=== PATIENT | female | born 1975 | race American Indian/Alaskan Native ===

== ENCOUNTER 2018-08-11 19:03 | Emergency (ER) | payer OTHER ==
[2018-08-11 19:43] VITALS: BP 155/92
[2018-08-11] MEDS ORDERED: SOLU-Medrol IM ONE (20:31)
[2018-08-11] MEDS ORDERED: PEPCID PO ONE (20:32)
--- NOTE | 2018-08-11 21:53 | Emergency Department Report ---
HPI - General Chief Complaint: Allergic Reaction Time Seen by Provider: 08/11/18 21:00 - HPI HPI: Patient is a 43-year-old -[place] female with a history of hypertension and seizures and takes carbamazepine and lisinopril presents to the ED with matthew goff of acute onset left lower lip swelling 12 hours ago, and which has since resolved but states that she retains pressure in the left lower lip. Patient states that she has been taking Lisinopril "for a while now" and suspects that the swelling may have been from taking lisinopril. Patient states that she took Benadryl intermittently through the day after developing this lower lip swelling. The patient denies dizziness, swollen tongue, swollen throat, dysphagia, dysphonia, shortness of breath, chest tightness, wheezing, cough, nausea, vomiting, diarrhea, abdominal pain, fever or chills. ED Past Medical Hx - Past Medical History Hx Hypertension: Yes Hx Seizures: Yes - Surgical History Additional Surgical History: tubal ligation - Social History Smoking Status: Never Smoker Substance Use Type: None - Medications Home Medications: Home Medications Medication Instructions Recorded Confirmed Last Taken Type Ranitidine HCl [Zantac] 150 mg PO Q12H #20 tablet 08/11/18 Unknown Rx amLODIPine [Norvasc] 10 mg PO DAILY #30 tab 08/11/18 Unknown Rx methylPREDNISolone [Medrol] 4 mg PO DAILY #21 tab.ds.pk 08/11/18 Unknown Rx ED Review of Systems ROS: Stated complaint: ALLEGIC REACTION/LIP SWOLLEN Other details as noted in HPI Comment: All other systems reviewed and negative Constitutional: no symptoms reported, see HPI. denies: chills, diaphoresis, fever, malaise, weakness Eyes: as per HPI. denies: eye pain, eye discharge, vision change ENT: as per HPI, other (Mild lower lip swelling). denies: ear pain, throat pain, dental pain, hearing loss, epistaxis, congestion Respiratory: no symptoms reported, see HPI. denies: cough, orthopnea, shortness of breath, SOB with exertion, SOB at rest Cardiovascular: as per HPI. denies: chest pain, palpitations, dyspnea on exertion, edema, syncope, other Endocrine: no symptoms reported, see HPI. denies: excessive sweating, flushing, intolerance to cold, intolerance to heat, increased hunger, unexplained weight gain Gastrointestinal: as per HPI. denies: abdominal pain, nausea, vomiting, diarrhea, constipation, hematemesis, melena, hematochezia Genitourinary: as per HPI. denies: urgency, dysuria, frequency, hematuria, discharge, abnormal menses, dyspareunia Musculoskeletal: as per HPI. denies: back pain, joint swelling, arthralgia Skin: as per HPI. denies: rash, lesions, change in color, change in hair/nails, pruritus Neurological: as per HPI. denies: headache, weakness, numbness, paresthesias, abnormal gait Psychiatric: as per HPI. denies: anxiety, depression, auditory hallucinations, visual hallucinations, homicidal thoughts Hematological/Lymphatic: as per HPI Physical Exam - Physical Exam Vital Signs: Vital Signs 08/11/18 19:40 Temperature 98.0 F Pulse Rate 66 Respiratory 18 Rate Blood Pressure 155/92 O2 Sat by Pulse 100 Oximetry General: Patient is alert and oriented 3 and is not in distress with normal vital signs. Physical Exam: Physical exam findings are positive for a mildly swollen left lower lip, but no throat or tongue swelling, redness and sinus congestion, no uvular swelling or erythematous rashes.. That is of the physical exam is unremarkable in all systems Body Four View: 1 - Mild swelling of the lower lip 2 - Mild swelling of lower lip ED Course Vital Signs 08/11/18 19:40 Temperature 98.0 F Pulse Rate 66 Respiratory 18 Rate Blood Pressure 155/92 O2 Sat by Pulse 100 Oximetry - Reevaluation(s) Reevaluation #1: 08/11/18 21:55 Patient is alert and oriented 3 and is not in distress with normal vital signs. Patient was treated in the ED with Solu-Medrol and Pepcid, since she had already taken Benadryl prior to arrival in the ED. On reevaluation, patient feeling better and was discharged home on medications including Medrol Dosepak, Zantac and advised to continue taking an Advil every 6 hours as needed. Patient's blood pressure medications were changed from lisinopril to amlodipine 10 mg daily for her chronic hypertension. Patient was advised to follow up with her primary care physician in 2-3 days for reevaluation, and also advised to return to the ED immediately if symptoms get worse. 08/11/18 21:55 ED Medical Decision Making - Medical Decision Making Patient is alert and oriented 3 and is not in distress with normal vital signs. Patient was treated in the ED with Solu-Medrol and Pepcid, since she had already taken Benadryl prior to arrival in the ED. On reevaluation, patient feeling better and was discharged home on medications including Medrol Dosepak, Zantac and advised to continue taking an Advil every 6 hours as needed. Patient's blood pressure medications were changed from lisinopril to amlodipine 10 mg daily for her chronic hypertension. Patient was advised to follow up with her primary care physician in 2-3 days for reevaluation, and also advised to return to the ED immediately if symptoms get worse. - Differential Diagnosis acute allergic reaction, Facial swelling Critical care attestation.: If time is entered above; I have spent that time in minutes in the direct care of this critically ill patient, excluding procedure time. ED Disposition Clinical Impression: Left facial swelling Acute allergic reaction Qualifiers: Encounter type: initial encounter Qualified Code(s): T78.40XA - Allergy, unspecified, initial encounter Disposition: TO HOME OR SELFCARE Is pt being admited?: No Does the pt Need Aspirin: No Condition: Stable Instructions: Allergies (ED), Urticaria (ED) Additional Instructions: Take medication with food, drink plenty of fluids and follow up with your primary care physician in 2-3 days for reevaluation. Return to the ED immediately if symptoms get worse. Prescriptions: methylPREDNISolone [Medrol] 4 mg PO DAILY #21 tab.ds.pk amLODIPine [Norvasc] 10 mg PO DAILY #30 tab Ranitidine HCl [Zantac] 150 mg PO Q12H #20 tablet Referrals: ISH CASTELLON [Primary Care Provider] - 3-5 Days Time of Disposition: 22:01 Print Language: URDU
== END 2018-08-11 22:10 | disposition home or self-care (01) ==
LOC: ED 19:03
DX: T78.40XA Allergy, unspecified, initial encounter (principal); Z98.51 Tubal ligation status; X58.XXXA Exposure to other specified factors, initial encounter
CPT/HCPCS: 96372; 99282; J2930